=== PATIENT | male | born 1985 | race Caucasian/White ===

== ENCOUNTER 2016-11-22 08:16 | Emergency (ER) | payer OTHER ==
--- NOTE | 2016-11-22 09:05 | ED PDOC ---
Arrival/HPI - General Chief Complaint: Lower Extremity Problem/Injury Time Seen by Provider: 11/22/16 09:01 Historian: Patient - History of Present Illness Narrative History of Present Illness (Text): 11/22/16 09:00 A 31 year old male presents to the emergency department complaining of right ankle pain for the past 2 days. He states he was walking down the steps when he tripped down 1 step causing him to invert his right ankle. Patient denies any head trauma, loss of consciousness, back pain, neck pain, other injuries or complaints at this time. Patient does not want any pain medication at this time. Patient does not smoke or use drugs but does occasional drink. Time/Duration: Other (2 days) Symptom Onset: Sudden Symptom Course: Unchanged Quality: Other Activities at Onset: Light Context: Walking, Home Associated Symptoms (Text): 11/22/16 09:24 Inversion injury to right ankle down one step 2 days ago Past Medical History - Provider Review Nursing Documentation Reviewed: Yes - Psychiatric Hx Substance Use: No - Surgical History Hx Orthopedic Surgery: Yes (right knee) - Anesthesia Hx Anesthesia: Yes Hx Anesthesia Reactions: No Hx Malignant Hyperthermia: No Family/Social History - Physician Review Nursing Documentation Reviewed: Yes Family/Social History: Aortic/Thoracic Disection Smoking Status: Never Smoked Hx Alcohol Use: Yes Frequency of alcohol use: Socially Hx Substance Use: No Allergies/Home Meds Allergies/Adverse Reactions: Allergies No Known Allergies Allergy (Verified 11/22/16 08:47) Home Medications: Home Meds Medication Instructions Recorded Confirmed No Known Home Med 11/22/16 11/22/16 Review of Systems - Physician Review All systems were reviewed & negative as marked: Yes - Review of Systems Constitutional: absent: Other (head trauma or other injuries) Cardiovascular: absent: Syncope Musculoskeletal: Other (right ankle pain). absent: Back Pain, Neck Pain Physical Exam Vital Signs Reviewed: Yes Vital Signs Temp Pulse Resp BP Pulse Ox 11/22/16 08:49 98.7 F 77 16 141/86 99 Temperature: Afebrile Blood Pressure: Normal Pulse: Regular Respiratory Rate: Normal Appearance: Positive for: Well-Appearing, Non-Toxic, Comfortable Pain Distress: None Mental Status: Positive for: Alert and Oriented X 3 - Systems Exam Head: Present: Atraumatic, Normocephalic Conjunctiva: Present: Normal Lower Extremity: Present: NORMAL PULSES, Tenderness (tenderness with palpation of the right lateral ankle), Swelling, Neurovascularly Intact, Other ( ecchymosis to the right lateral ankle; no tenderness at the medial ascpect of the right ankle; no tenderness to the right foot). No: Edema, CALF TENDERNESS , Emmett's Sign, Erythema, Deformity Neurological: Present: GCS=15, CN II-XII Intact, Speech Normal Skin: Present: Warm, Dry, Normal Color. No: Rashes Psychiatric: Present: Alert, Oriented x 3, Normal Insight, Normal Concentration Medical Decision Making ED Course and Treatment: 11/22/16 09:00 Impression: A 31 year old male with right ankle pain after tripping over stairs. Differential Diagnosis include but are not limited to: fracture vs. sprain Plan: -- Right Ankle X-ray -- Reassess and disposition Progress Notes: - RAD Interpretation Radiology Orders: 11/22/16 09:01 ANKLE RIGHT 3 VIEWS ROUTINE [RAD] Stat Ankle 3 view shows no fracture or dislocation Rn Lpn Lvn: ED Physician - Scribe Statement The provider has reviewed the documentation as recorded by the Aimee Mcdaniels Provider Scribe Attestation: All medical record entries made by the Scribe were at my direction and personally dictated by me. I have reviewed the chart and agree that the record accurately reflects my personal performance of the history, physical exam, medical decision making, and the department course for this patient. I have also personally directed, reviewed, and agree with the discharge instructions and disposition. Disposition/Present on Arrival - Present on Arrival Any Indicators Present on Arrival: No History of DVT/PE: No History of Uncontrolled Diabetes: No Urinary Catheter: No History of Decub. Ulcer: No History Surgical Site Infection Following: None - Disposition Have Diagnosis and Disposition been Completed?: Yes Diagnosis: Right ankle sprain Disposition: HOME/ ROUTINE Disposition Time: 09:26 Patient Plan: Discharge Condition: GOOD Discharge Instructions (ExitCare): Ankle Sprain (ED) Additional Instructions: Rest ice and elevation. Tylenol or Advil as directed on bottle as needed. Follow -up with PMD. Follow up in ER as needed.
[2016-11-22 09:20] VITALS: TEMP 98.7; BMI 34.8
--- NOTE | 2016-11-22 09:37 | RAD ---
PROCEDURE: Right Ankle Radiographs. HISTORY: trauma COMPARISON: None FINDINGS: BONES: Normal. No fracture. JOINTS: Normal. No osteoarthritis. Ankle mortise maintained. Talar dome intact SOFT TISSUES: Soft tissue swelling on the lateral side OTHER FINDINGS: None. IMPRESSION: Negative study
[2016-11-22 09:50] VITALS: BP 139/88; PULSE 75; RESP 17; O2SAT 100
== END 2016-11-22 09:51 | disposition home or self-care (01) ==
LOC: ED 08:16
DX: S93.401A Sprain of unspecified ligament of right ankle, initial encounter (principal); W10.9XXA Fall (on) (from) unspecified stairs and steps, initial encounter; Y93.01 Activity, walking, marching and hiking; Y92.009 Unspecified place in unspecified non-institutional (private) residence as the place of occurrence of the external cause